=== PATIENT | male | born 1955 | race Caucasian/White ===

== ENCOUNTER 2020-12-15 10:27 | Inpatient (IN) | payer MEDICARE ==
[2020-12-15] VITALS (9 sets, daily range): BP systolic 87–97; BP diastolic 49–67
[~2020-12-15] VITALS: Ht 180.3 cm; Wt 73.4 kg
[2020-12-15 12:07] LABS: BASOPHILS % (AUTO) 0.1 % (0.0-5.0); EOSINOPHILS % (AUTO) 0.2 % (0.0-8.0); HEMATOCRIT 31.6 % (42-54); LYMPHOCYTES % (AUTO) 4.1 % (21.0-51.0); MEAN CORPUSCULAR HEMOGLOBIN 36.3 pg (27.0-33.0); MEAN CORPUSCULAR HGB CONC 37.3 g/dL (32.0-36.0); MEAN CORPUSCULAR VOLUME 97.2 fL (79-99); MONOCYTES % (AUTO) 5.6 % (3.0-13.0); NEUTROPHILS % (AUTO) 88.3 % (40.0-77.0); PLATELET COUNT (AUTO) 305 K/uL (130-400); RED BLOOD CELL COUNT(AUTO) 3.25 MIL/uL (4.50-6.20); WHITE BLOOD COUNT (AUTO) 21.5 K/uL (4.8-10.8)
[2020-12-15 12:19] LABS: INR 1.03 (0.85-1.15); PROTHROMBIN TIME 11.2 SEC (9.6-11.6)
[2020-12-15 12:20] LABS: PARTIAL THROMBOPLASTIN TIME 29.2 SEC (26.3-35.5)
[2020-12-15 12:21] LABS: ALBUMIN 2.2 g/dL (3.5-5.0); BILIRUBIN,TOTAL 0.7 mg/dL (0.2-1.0); POTASSIUM 3.8 mmol/L (3.5-5.1); TOTAL PROTEIN, SERUM 5.6 g/dL (6.0-8.3)
[2020-12-15 12:53] LABS: B-TYPE NATRIURETIC PEPTIDE 75 pg/mL (0-100)
[2020-12-15] MEDS ORDERED: 0.9% NACL 250ML IVPB ONE (13:00)
[2020-12-15] MEDS ORDERED: ZOSYN 3.375GM+NS 50ML 3.38 GM in 0.9%NACL 50ML 50 ML IV SCH ×2 (13:00→15:00)
[2020-12-15] MEDS ORDERED: VANCOMYCIN 1G VIAL IVPB ONE (13:00)
[2020-12-15] MEDS: ZOSYN 3.375GM +NS 50ML IV SCH ×2 (13:12→21:17)
[2020-12-15] MEDS: 0.9%NACL 50ML 50 ML IV SCH ×2 (13:12→21:17)
[2020-12-15] MEDS ORDERED: VANCOMYCIN 1G/250ML KIT 250 ML IV ONE (13:13)
[2020-12-15] MEDS ORDERED: ACETAMINOPHEN 325 MG TAB PO PRN ×2 (14:30)
[2020-12-15] MEDS ORDERED: ZOLPIDEM TARTRATE 5 MG TAB PO PRN (14:30)
[2020-12-15] MEDS ORDERED: ONDANSETRON 4MG INJ IV PRN (14:30)
[2020-12-15] MEDS ORDERED: IOHEXOL-350 50ML VIAL IV ONE (14:32)
[2020-12-15] MEDS ORDERED: VANCOMYCIN PROTOCOL PER PHARMACY IV SCH (15:00)
[2020-12-15] MEDS: 0.9%NACL 1000ML 1,000 ML IV SCH ×2 (15:32→23:48)
[2020-12-15] MEDS: NOREPINEPHRINE 4MG/NS 250ML 250 ML IV SCH (16:33)
[2020-12-15] MEDS: 0.9% NACL 250ML 250 ML IV SCH (16:34)
[2020-12-15] MEDS: VANCOMYCIN 750MG VIAL IVPB SCH (16:34)
[2020-12-15] MEDS: FAMOTIDINE 20MG VIAL IV SCH (21:17)
[2020-12-16] VITALS (11 sets, daily range): BP systolic 90–120; BP diastolic 52–86
[2020-12-16] MEDS: VANCOMYCIN 750MG VIAL IVPB SCH ×3 (01:22→17:23)
[2020-12-16] MEDS: 0.9% NACL 250ML 250 ML IV SCH ×3 (01:22→17:23)
[2020-12-16 01:26] LABS: APPEARANCE,URINE Clear (CLEAR); BILIRUBIN,URINE Negative (NEGATIVE); COLOR,URINE Yellow (YELLOW); GLUCOSE, URINE (UA) Negative (NEGATIVE); KETONES,URINE Trace mg/dL (NEGATIVE); LEUKOCYTE ESTERASE ,URINE Small (NEGATIVE); NITRATE,URINE Positive (NEGATIVE); OCCULT BLOOD,URINE Small (NEGATIVE); PROTEIN,URINE Negative (NEGATIVE)
[2020-12-16] MEDS: 0.9%NACL 1000ML 1,000 ML IV SCH ×2 (01:43→20:30)
[2020-12-16 01:44] LABS: BACTERIA,URINE Few /HPF (None Seen); SQUAMOUS EPITHELIAL CELL,UR Rare /HPF (0-2)
[2020-12-16] MEDS: ZOSYN 3.375GM +NS 50ML IV SCH ×3 (05:46→21:08)
[2020-12-16] MEDS: 0.9%NACL 50ML 50 ML IV SCH ×3 (05:46→21:08)
[2020-12-16 08:01] LABS: HEMATOCRIT 29.7 % (42-54); MEAN CORPUSCULAR HEMOGLOBIN 35.8 pg (27.0-33.0); MEAN CORPUSCULAR VOLUME 99.3 fL (79-99); RED BLOOD CELL COUNT(AUTO) 2.99 MIL/uL (4.50-6.20); RED CELL DISTRIBUTION WIDTH 12.2 % (11.0-15.5); WHITE BLOOD COUNT (AUTO) 16.9 K/uL (4.8-10.8)
[2020-12-16 08:38] LABS: ALBUMIN 1.7 g/dL (3.5-5.0); BILIRUBIN,TOTAL 0.6 mg/dL (0.2-1.0); CREATININE 0.9 mg/dL (0.5-1.5); POTASSIUM 3.1 mmol/L (3.5-5.1); THYROID STIMULATING HORMONE 2.04 uIU/mL (0.36-3.74); TOTAL PROTEIN, SERUM 4.5 g/dL (6.0-8.3)
[2020-12-16] MEDS: FAMOTIDINE 20MG VIAL IV SCH ×2 (09:55→21:08)
[2020-12-16] MEDS: ENOXAPARIN SODIUM 30 MG/0.3 ML SQ SCH (09:56)
[2020-12-16] MEDS ORDERED: VANCOMYCIN 500 MG IV ONE (11:15)
[2020-12-16] MEDS ORDERED: [UNRECOGNIZED DRUG - OTHER] IV ONE (11:15)
[2020-12-17] MEDS: VANCOMYCIN 750MG VIAL IVPB SCH ×3 (01:55→18:53)
[2020-12-17] MEDS: 0.9% NACL 250ML 250 ML IV SCH ×3 (01:55→18:53)
[2020-12-17 06:53] LABS: BASOPHILS % (AUTO) 0.3 % (0.0-5.0); EOSINOPHILS % (AUTO) 0.4 % (0.0-8.0); HEMATOCRIT 29.9 % (42-54); LYMPHOCYTES % (AUTO) 5.6 % (21.0-51.0); MEAN CORPUSCULAR HEMOGLOBIN 35.8 pg (27.0-33.0); MEAN CORPUSCULAR HGB CONC 36.1 g/dL (32.0-36.0); MONOCYTES % (AUTO) 6.1 % (3.0-13.0); NEUTROPHILS % (AUTO) 85.1 % (40.0-77.0); PLATELET COUNT (AUTO) 235 K/uL (130-400); RED BLOOD CELL COUNT(AUTO) 3.02 MIL/uL (4.50-6.20); RED CELL DISTRIBUTION WIDTH 12.1 % (11.0-15.5)
[2020-12-17 07:02] LABS: CREATININE 0.9 mg/dL (0.5-1.5)
[2020-12-17 07:03] LABS: POTASSIUM 2.8 mmol/L (3.5-5.1)
[2020-12-17 08:00] VITALS: BP 96/49
[2020-12-17] MEDS ORDERED: KCL 20 MEQ ERTAB PO ONE ×2 (08:30→10:12)
[2020-12-17] MEDS: 0.9%NACL 50ML 50 ML IV SCH ×2 (10:19→18:16)
[2020-12-17] MEDS: FAMOTIDINE 20MG VIAL IV SCH ×2 (10:20→19:47)
[2020-12-17] MEDS: 0.9%NACL 1000ML 1,000 ML IV SCH (10:20)
[2020-12-17] MEDS: ZOSYN 3.375GM +NS 50ML IV SCH ×2 (10:20→18:16)
[2020-12-17] MEDS: ENOXAPARIN SODIUM 30 MG/0.3 ML SQ SCH (10:21)
[2020-12-17 12:00] VITALS: BP 95/44
[2020-12-17] MEDS ORDERED: MIDODRINE HCL 5 MG TABLET PO SCH (14:00)
[2020-12-17] MEDS ORDERED: POTASSIUM CHLORIDE 10% ELIXIR 20 MEQ/15 ML UDCUP PO ONE (14:00)
[2020-12-17] MEDS: MAGNESIUM 2GM PREMIX 50ML 50 ML IV SCH (14:15)
[2020-12-17] MEDS ORDERED: 0.9%NACL 50ML 50 ML IV ONE (14:54)
[2020-12-17] MEDS ORDERED: MIDODRINE HCL 5 MG TABLET ONE ×2 (15:42→19:41)
[2020-12-17 17:00] VITALS: BP 102/62
[2020-12-17 18:00] VITALS: BP 89/50
[2020-12-17] MEDS ORDERED: FOLIC ACID 1 MG TABLET PO ONE (18:30)
[2020-12-17] MEDS ORDERED: THIAMINE HCL 100 MG/ML 2ML VIAL IVP SCH (18:30)
[2020-12-17] MEDS ORDERED: PHARMACY COMMUNICATION MISC PRN (18:30)
[2020-12-17] MEDS: CHLORDIAZEPOXIDE HCL 25 MG CAP PO PRN (18:50)
[2020-12-17] MEDS: MIDODRINE HCL 5 MG TABLET PO SCH (19:47)
[2020-12-18] VITALS (7 sets, daily range): BP systolic 100–118; BP diastolic 39–65
[2020-12-18] MEDS: CHLORDIAZEPOXIDE HCL 25 MG CAP PO PRN (01:40)
[2020-12-18] MEDS: DIPHENHYDRAMINE HCL 25 MG CAPSULE PO PRN (01:40)
[2020-12-18] MEDS: ZOSYN 3.375GM +NS 50ML IV SCH ×3 (02:31→18:28)
[2020-12-18] MEDS: 0.9%NACL 50ML 50 ML IV SCH ×3 (02:40→18:28)
[2020-12-18] MEDS: 0.9% NACL 250ML 250 ML IV SCH ×3 (02:41→17:35)
[2020-12-18] MEDS: VANCOMYCIN 750MG VIAL IVPB SCH ×3 (02:41→17:35)
[2020-12-18] MEDS: 0.9%NACL 1000ML 1,000 ML IV SCH (02:42)
[2020-12-18 05:51] LABS: BASOPHILS % (AUTO) 0.4 % (0.0-5.0); EOSINOPHILS % (AUTO) 0.5 % (0.0-8.0); HEMATOCRIT 30.2 % (42-54); LYMPHOCYTES % (AUTO) 7.4 % (21.0-51.0); MEAN CORPUSCULAR HEMOGLOBIN 35.9 pg (27.0-33.0); MEAN CORPUSCULAR HGB CONC 35.1 g/dL (32.0-36.0); MEAN CORPUSCULAR VOLUME 102.4 fL (79-99); MONOCYTES % (AUTO) 6.5 % (3.0-13.0); NEUTROPHILS % (AUTO) 83.5 % (40.0-77.0); PLATELET COUNT (AUTO) 246 K/uL (130-400); RED BLOOD CELL COUNT(AUTO) 2.95 MIL/uL (4.50-6.20); RED CELL DISTRIBUTION WIDTH 12.1 % (11.0-15.5); WHITE BLOOD COUNT (AUTO) 14.4 K/uL (4.8-10.8)
[2020-12-18] MEDS: NOREPINEPHRINE 4MG/NS 250ML 250 ML IV SCH (05:55)
[2020-12-18 06:06] LABS: POTASSIUM 3.3 mmol/L (3.5-5.1)
[2020-12-18] MEDS ORDERED: DEXTROSE 50%-WATER 50 ML DISP.SYRIN IV ONE ×2 (06:21→15:36)
[2020-12-18] MEDS: FAMOTIDINE 20MG VIAL IV SCH ×2 (08:37→21:39)
[2020-12-18] MEDS: FOLIC ACID 1 MG TABLET PO SCH (08:37)
[2020-12-18] MEDS: MIDODRINE HCL 5 MG TABLET PO SCH ×3 (08:37→21:39)
[2020-12-18] MEDS: ENOXAPARIN SODIUM 30 MG/0.3 ML SQ SCH (08:42)
[2020-12-18 08:55] LABS: RAPID PLASMA REAGIN NONREACTIVE (NONREACTIVE)
[2020-12-18] MEDS: THIAMINE HCL 100 MG/ML 2ML VIAL IVP SCH (09:07)
[2020-12-18] MEDS: LORAZEPAM 2 MG/ML 1 ML VIAL IVP PRN (16:07)
[2020-12-18] MEDS ORDERED: DEXTROSE 5%-WATER 1,000 ML IV ONE (16:31)
[2020-12-18] MEDS: DEXTROSE 5 % AND 0.9 % NACL 1,000 ML IV SCH (16:34)
[2020-12-19] VITALS (29 sets, daily range): BP systolic 65–133; BP diastolic 36–91
[2020-12-19] MEDS: VANCOMYCIN 750MG VIAL IVPB SCH ×3 (01:00→16:38)
[2020-12-19] MEDS: 0.9% NACL 250ML 250 ML IV SCH ×3 (01:00→16:38)
[2020-12-19] MEDS: 0.9%NACL 50ML 50 ML IV SCH ×3 (01:51→18:25)
[2020-12-19] MEDS: ZOSYN 3.375GM +NS 50ML IV SCH ×3 (01:51→18:25)
[2020-12-19] MEDS: CHLORDIAZEPOXIDE HCL 25 MG CAP PO PRN ×2 (02:07→21:47)
[2020-12-19] MEDS: DEXTROSE 5 % AND 0.9 % NACL 1,000 ML IV SCH ×3 (04:10→20:24)
[2020-12-19 08:48] LABS: BASOPHILS % (AUTO) 0.4 % (0.0-5.0); EOSINOPHILS % (AUTO) 0.6 % (0.0-8.0); LYMPHOCYTES % (AUTO) 6.4 % (21.0-51.0); MEAN CORPUSCULAR HEMOGLOBIN 35.7 pg (27.0-33.0); MEAN CORPUSCULAR HGB CONC 35.6 g/dL (32.0-36.0); MEAN CORPUSCULAR VOLUME 100.3 fL (79-99); MONOCYTES % (AUTO) 7.6 % (3.0-13.0); NEUTROPHILS % (AUTO) 83.3 % (40.0-77.0); PLATELET COUNT (AUTO) 240 K/uL (130-400); RED BLOOD CELL COUNT(AUTO) 3.19 MIL/uL (4.50-6.20); RED CELL DISTRIBUTION WIDTH 12.2 % (11.0-15.5); WHITE BLOOD COUNT (AUTO) 14.5 K/uL (4.8-10.8)
[2020-12-19] MEDS: LACTATED RINGERS 1000ML IV SCH (08:50)
[2020-12-19] MEDS: MIDODRINE HCL 5 MG TABLET PO SCH ×3 (09:00→20:34)
[2020-12-19] MEDS: FOLIC ACID 1 MG TABLET PO SCH (09:00)
[2020-12-19 09:03] LABS: ALBUMIN 1.4 g/dL (3.5-5.0); BILIRUBIN,TOTAL 0.7 mg/dL (0.2-1.0); CREATININE 0.8 mg/dL (0.5-1.5); MAGNESIUM 1.8 mg/dL (1.80-2.40); PHOSPHORUS 3.1 mg/dL (2.5-4.9); POTASSIUM 3.4 mmol/L (3.5-5.1); TOTAL PROTEIN, SERUM 4.4 g/dL (6.0-8.3)
[2020-12-19] MEDS: FAMOTIDINE 20MG VIAL IV SCH ×2 (09:38→20:01)
[2020-12-19] MEDS: THIAMINE HCL 100 MG/ML 2ML VIAL IVP SCH (09:39)
[2020-12-19] MEDS: ENOXAPARIN SODIUM 30 MG/0.3 ML SQ SCH (09:40)
[2020-12-19] MEDS ORDERED: 0.9%NACL 1000ML 1,000 ML IV SCH (11:30)
[2020-12-19] MEDS ORDERED: KCL 20 MEQ ERTAB PO ONE (11:30)
[2020-12-19] MEDS ORDERED: POTASSIUM CHLORIDE 10% ELIXIR 20 MEQ/15 ML UDCUP ONE (13:17)
[2020-12-19] MEDS: DRONABINOL 2.5 MG CAP PO SCH (20:01)
[2020-12-19] MEDS: NOREPINEPHRINE 4MG/NS 250ML 250 ML IV SCH (20:10)
[2020-12-19] MEDS: DIPHENHYDRAMINE HCL 25 MG CAPSULE PO PRN (21:47)
[2020-12-20] VITALS (37 sets, daily range): BP systolic 72–135; BP diastolic 33–79
[2020-12-20] MEDS: NOREPINEPHRINE 4MG/NS 250ML 250 ML IV SCH ×3 (00:13→13:55)
[2020-12-20] MEDS: LORAZEPAM 2 MG/ML 1 ML VIAL IVP PRN ×2 (00:44→16:46)
[2020-12-20] MEDS: ZOSYN 3.375GM +NS 50ML IV SCH ×3 (02:02→17:48)
[2020-12-20] MEDS: 0.9%NACL 50ML 50 ML IV SCH ×3 (02:02→17:48)
[2020-12-20] MEDS: LACTATED RINGERS 1000ML IV SCH (03:04)
[2020-12-20] MEDS: MAGNESIUM 2GM PREMIX 50ML 50 ML IV SCH (03:15)
[2020-12-20 04:14] LABS: BASOPHILS % (AUTO) 0.4 % (0.0-5.0); EOSINOPHILS % (AUTO) 0.9 % (0.0-8.0); HEMATOCRIT 33.1 % (42-54); MEAN CORPUSCULAR HEMOGLOBIN 37.1 pg (27.0-33.0); MEAN CORPUSCULAR HGB CONC 35.6 g/dL (32.0-36.0); MEAN CORPUSCULAR VOLUME 104.1 fL (79-99); MONOCYTES % (AUTO) 6.8 % (3.0-13.0); NEUTROPHILS % (AUTO) 82.8 % (40.0-77.0); PLATELET COUNT (AUTO) 254 K/uL (130-400); RED BLOOD CELL COUNT(AUTO) 3.18 MIL/uL (4.50-6.20); RED CELL DISTRIBUTION WIDTH 12.5 % (11.0-15.5); WHITE BLOOD COUNT (AUTO) 20.8 K/uL (4.8-10.8)
[2020-12-20 04:37] LABS: % IRON SATURATION 64.1 % (30-44)
[2020-12-20 05:02] LABS: ALBUMIN 1.4 g/dL (3.5-5.0); BILIRUBIN,TOTAL 0.8 mg/dL (0.2-1.0); CREATININE 0.9 mg/dL (0.5-1.5); MAGNESIUM 6.1 mg/dL (1.80-2.40); PHOSPHORUS 3.5 mg/dL (2.5-4.9); POTASSIUM 3.3 mmol/L (3.5-5.1); TOTAL PROTEIN, SERUM 4.3 g/dL (6.0-8.3)
[2020-12-20] MEDS: VANCOMYCIN KIT 1 GM/250 ML IV.KIT IV SCH ×2 (08:41→21:27)
[2020-12-20] MEDS: ASCORBIC ACID 500 MG TAB PO SCH (08:42)
[2020-12-20] MEDS: FAMOTIDINE 20MG VIAL IV SCH (08:42)
[2020-12-20] MEDS: THIAMINE HCL 100 MG/ML 2ML VIAL IVP SCH (08:42)
[2020-12-20] MEDS: ZINC SULFATE 220 CAPSULE PO SCH (08:42)
[2020-12-20] MEDS: ENOXAPARIN SODIUM 30 MG/0.3 ML SQ SCH (08:42)
[2020-12-20] MEDS: FOLIC ACID 1 MG TABLET PO SCH (08:43)
[2020-12-20] MEDS: 0.9% NACL 250ML 250 ML IV SCH ×2 (08:43→21:27)
[2020-12-20] MEDS: DRONABINOL 2.5 MG CAP PO SCH ×2 (08:43→21:00)
[2020-12-20] MEDS: MIDODRINE HCL 5 MG TABLET PO SCH ×3 (09:00→21:00)
[2020-12-20] MEDS: DEXTROSE 5 % AND 0.9 % NACL 1,000 ML IV SCH (16:47)
[2020-12-21] VITALS (45 sets, daily range): BP systolic 72–147; BP diastolic 34–105
[2020-12-21] MEDS: LORAZEPAM 2 MG/ML 1 ML VIAL IVP PRN ×2 (00:52→21:41)
[2020-12-21] MEDS: 0.9%NACL 50ML 50 ML IV SCH ×3 (02:00→17:11)
[2020-12-21] MEDS: ZOSYN 3.375GM +NS 50ML IV SCH ×3 (02:11→17:11)
[2020-12-21] MEDS: NOREPINEPHRINE 4MG/NS 250ML 250 ML IV SCH ×3 (02:14→15:25)
[2020-12-21 03:41] LABS: BASOPHILS % (AUTO) 0.3 % (0.0-5.0); EOSINOPHILS % (AUTO) 1.1 % (0.0-8.0); HEMATOCRIT 30.9 % (42-54); LYMPHOCYTES % (AUTO) 5.3 % (21.0-51.0); MEAN CORPUSCULAR HEMOGLOBIN 36.5 pg (27.0-33.0); MEAN CORPUSCULAR HGB CONC 35.6 g/dL (32.0-36.0); MEAN CORPUSCULAR VOLUME 102.7 fL (79-99); MONOCYTES % (AUTO) 5.3 % (3.0-13.0); NEUTROPHILS % (AUTO) 86.2 % (40.0-77.0); PLATELET COUNT (AUTO) 183 K/uL (130-400); RED BLOOD CELL COUNT(AUTO) 3.01 MIL/uL (4.50-6.20); RED CELL DISTRIBUTION WIDTH 12.6 % (11.0-15.5); WHITE BLOOD COUNT (AUTO) 13.7 K/uL (4.8-10.8)
[2020-12-21 03:48] LABS: ALBUMIN 1.3 g/dL (3.5-5.0); BILIRUBIN,TOTAL 0.6 mg/dL (0.2-1.0); CREATININE 0.8 mg/dL (0.5-1.5); MAGNESIUM 1.9 mg/dL (1.80-2.40)
[2020-12-21 03:58] LABS: POTASSIUM 2.9 mmol/L (3.5-5.1)
[2020-12-21] MEDS ORDERED: POTASSIUM CHLORIDE 20MEQ/100ML 100 ML IV ONE (04:16)
[2020-12-21] MEDS: POTASSIUM CHLORIDE 20MEQ/100ML 100 ML IV PRN ×2 (05:49→08:03)
[2020-12-21] MEDS ORDERED: IPRATROPIUM 0.5 MG/2.5 ML INH IH PRN (08:00)
[2020-12-21] MEDS: DEXTROSE 5 % AND 0.9 % NACL 1,000 ML IV SCH (08:04)
[2020-12-21] MEDS: LACTATED RINGERS 1000ML IV SCH (08:30)
[2020-12-21] MEDS ORDERED: PANTOPRAZOLE 40 MG TAB DR PO SCH (09:00)
[2020-12-21] MEDS: ENOXAPARIN SODIUM 30 MG/0.3 ML SQ SCH (09:38)
[2020-12-21] MEDS: MIDODRINE HCL 5 MG TABLET PO SCH ×3 (09:38→20:56)
[2020-12-21] MEDS: 0.9% NACL 250ML 250 ML IV SCH ×2 (09:38→20:51)
[2020-12-21] MEDS: FOLIC ACID 1 MG TABLET PO SCH (09:38)
[2020-12-21] MEDS: VANCOMYCIN KIT 1 GM/250 ML IV.KIT IV SCH ×2 (09:38→20:51)
[2020-12-21] MEDS: ZINC SULFATE 220 CAPSULE PO SCH (09:38)
[2020-12-21] MEDS: THIAMINE HCL 100 MG/ML 2ML VIAL IVP SCH ×3 (09:38→20:55)
[2020-12-21] MEDS: ASCORBIC ACID 500 MG TAB PO SCH (09:38)
[2020-12-21] MEDS: DRONABINOL 2.5 MG CAP PO SCH ×2 (09:38→20:55)
[2020-12-21] MEDS: FUROSEMIDE 20MG VIAL IV ONE ×2 (17:00→17:10)
[2020-12-21] MEDS: IPRATROPIUM 0.5 MG/2.5 ML INH IH SCH ×2 (18:30→22:48)
[2020-12-21 19:27] LABS: INR 1.12 (0.85-1.15); PROTHROMBIN TIME 12.1 SEC (9.6-11.6)
[2020-12-21 19:28] LABS: PARTIAL THROMBOPLASTIN TIME 46.3 SEC (26.3-35.5)
[2020-12-22] VITALS (81 sets, daily range): BP systolic 67–143; BP diastolic 17–100
[2020-12-22] MEDS: DEXTROSE 5 % AND 0.9 % NACL 1,000 ML IV SCH ×2 (00:21→13:12)
[2020-12-22] MEDS: ZOSYN 3.375GM +NS 50ML IV SCH ×3 (01:00→17:57)
[2020-12-22] MEDS: NOREPINEPHRINE 4MG/NS 250ML 250 ML IV SCH (01:01)
[2020-12-22] MEDS: 0.9%NACL 50ML 50 ML IV SCH ×3 (01:07→17:57)
[2020-12-22] MEDS: LORAZEPAM 2 MG/ML 1 ML VIAL IVP PRN ×2 (01:56→06:15)
[2020-12-22 04:58] LABS: BASOPHILS % (AUTO) 0.2 % (0.0-5.0); EOSINOPHILS % (AUTO) 0.1 % (0.0-8.0); LYMPHOCYTES % (AUTO) 2.1 % (21.0-51.0); MEAN CORPUSCULAR HEMOGLOBIN 35.8 pg (27.0-33.0); MEAN CORPUSCULAR HGB CONC 34.2 g/dL (32.0-36.0); MEAN CORPUSCULAR VOLUME 104.7 fL (79-99); MONOCYTES % (AUTO) 3.3 % (3.0-13.0); NEUTROPHILS % (AUTO) 92.4 % (40.0-77.0); PLATELET COUNT (AUTO) 179 K/uL (130-400); RED BLOOD CELL COUNT(AUTO) 2.96 MIL/uL (4.50-6.20); RED CELL DISTRIBUTION WIDTH 12.8 % (11.0-15.5); WHITE BLOOD COUNT (AUTO) 27.5 K/uL (4.8-10.8)
[2020-12-22 05:18] LABS: ALBUMIN 1.3 g/dL (3.5-5.0); BILIRUBIN,TOTAL 0.6 mg/dL (0.2-1.0); POTASSIUM 3.7 mmol/L (3.5-5.1); TOTAL PROTEIN, SERUM 4.1 g/dL (6.0-8.3)
[2020-12-22] MEDS: IPRATROPIUM 0.5 MG/2.5 ML INH IH SCH ×4 (06:33→23:27)
[2020-12-22] MEDS: 0.9% NACL 250ML 250 ML IV SCH ×2 (09:00→21:00)
[2020-12-22] MEDS: VANCOMYCIN KIT 1 GM/250 ML IV.KIT IV SCH ×2 (09:00→21:00)
[2020-12-22] MEDS ORDERED: PANTOPRAZOLE 40 MG/VIAL IVP SCH (09:00)
[2020-12-22] MEDS: THIAMINE HCL 100 MG/ML 2ML VIAL IVP SCH ×2 (09:52→20:10)
[2020-12-22] MEDS: FOLIC ACID 1 MG TABLET PO SCH (09:52)
[2020-12-22] MEDS: ASCORBIC ACID 500 MG TAB PO SCH (09:52)
[2020-12-22] MEDS: MIDODRINE HCL 5 MG TABLET PO SCH ×3 (09:52→20:11)
[2020-12-22] MEDS: ZINC SULFATE 220 CAPSULE PO SCH (09:52)
[2020-12-22] MEDS: DRONABINOL 2.5 MG CAP PO SCH ×2 (09:52→20:09)
[2020-12-22] MEDS: ENOXAPARIN SODIUM 30 MG/0.3 ML SQ SCH (09:53)
[2020-12-22] MEDS: LACTATED RINGERS 1000ML IV SCH (10:12)
[2020-12-22] MEDS ORDERED: FUROSEMIDE 20MG VIAL ONE (10:38)
[2020-12-22] MEDS ORDERED: CHLORDIAZEPOXIDE HCL 25 MG CAP PO PRN (13:00)
[2020-12-22] MEDS ORDERED: LORAZEPAM 2 MG/ML 1 ML VIAL IVP PRN (13:00)
[2020-12-22] MEDS ORDERED: NOREPINEPHRINE BITARTRATE 8 MG in DEXTROSE 5%-WATER 250 ML IV PRN (13:30)
[2020-12-22] MEDS ORDERED: NOREPINEPHRINE 8MG/NS 250 ML 250 ML IV ONE ×3 (14:52→20:35)
[2020-12-22] MEDS: FUROSEMIDE 40MG VIAL IV SCH (16:19)
[2020-12-22] MEDS ORDERED: DEXTROSE 5%-WATER 1,000 ML IV SCH (16:30)
[2020-12-22] MEDS ORDERED: NOREPINEPHRINE BITARTRATE 32 MG in DEXTROSE 5%-WATER 250 ML IV PRN (21:30)
[2020-12-23] VITALS (23 sets, daily range): BP systolic 71–173; BP diastolic 24–78
[2020-12-23] MEDS ORDERED: PHENYLEPHRINE HCL 10 MG/ML 1ML VIAL IV ONE ×2 (00:52→02:15)
[2020-12-23] MEDS ORDERED: PHENYLEPHRINE HCL 100 MG in 0.9% NACL 250ML 250 ML IV SCH (01:00)
[2020-12-23] MEDS ORDERED: 0.9% NACL 500ML IV.SOLN 500 ML IV ONE (01:00)
[2020-12-23 01:38] LABS: MAGNESIUM 1.9 mg/dL (1.80-2.40); POTASSIUM 4.2 mmol/L (3.5-5.1)
[2020-12-23] MEDS: ZOSYN 3.375GM +NS 50ML IV SCH (01:43)
[2020-12-23] MEDS: 0.9%NACL 50ML 50 ML IV SCH (01:44)
[2020-12-23] MEDS: FUROSEMIDE 40MG VIAL IV SCH (04:30)
[2020-12-23] MEDS ORDERED: VASOPRESSIN 20 UNITS/ML 1ML VIAL ONE (04:41)
[2020-12-23] MEDS ORDERED: 0.9%NACL 100ML 100 ML ONE (04:43)
[2020-12-23 05:12] LABS: BASOPHILS % (AUTO) 0.3 % (0.0-5.0); LYMPHOCYTES % (AUTO) 1.8 % (21.0-51.0)
[2020-12-23 05:14] LABS: HEMATOCRIT 33.6 % (42-54); MEAN CORPUSCULAR HEMOGLOBIN 36.7 pg (27.0-33.0); MEAN CORPUSCULAR HGB CONC 34.5 g/dL (32.0-36.0); MEAN CORPUSCULAR VOLUME 106.3 fL (79-99); MONOCYTES % (AUTO) 3.3 % (3.0-13.0); NEUTROPHILS % (AUTO) 91.5 % (40.0-77.0); PLATELET COUNT (AUTO) 232 K/uL (130-400); RED BLOOD CELL COUNT(AUTO) 3.16 MIL/uL (4.50-6.20); RED CELL DISTRIBUTION WIDTH 13.5 % (11.0-15.5)
[2020-12-23 05:24] LABS: WHITE BLOOD COUNT (AUTO) 43.8 K/uL (4.8-10.8)
[2020-12-23 05:27] LABS: CREATININE 1.6 mg/dL (0.5-1.5); POTASSIUM 4.3 mmol/L (3.5-5.1)
[2020-12-23 06:06] LABS: BAND NEUTROPHILS % (MANUAL) 6 % (0-2); MAN.DIFF COMMENT-IMPRESSION MANUAL DIFFERENTIAL; MONOCYTES % (MANUAL) 4 % (2-9); SEGMENTED NEUTROPHILS % 90 % (40-70)
[2020-12-23] MEDS ORDERED: VASOPRESSIN 40 UNITS in 0.9%NACL 50ML 40 ML IV SCH (06:55)
[2020-12-23] MEDS: IPRATROPIUM 0.5 MG/2.5 ML INH IH SCH (07:01)
[2020-12-23] MEDS ORDERED: IPRATROPIUM 0.5 MG/2.5 ML INH IH PRN (07:30)
[2021-01-05 12:47] LABS: HEPATITIS A ANTIBODY IGM SEE SEPARATE REPORT (Negative); HEPATITIS B CORE IGM SEE SEPARATE RESULT (Negative); HEPATITIS Bs ANTIGEN SCREEN P SSR (Negative)
== END 2020-12-23 11:27 | DRG 871 ==
LOC: EDH 10:27 → EDHIP 14:05 → 2CH 12-19 17:28
PROVIDERS: ADMIT Hospitalist; ATTEND Hospitalist
PROC: 02HV33Z Insertion of Infusion Device into Superior Vena Cava, Percutaneous Approach (ICD-10-PCS; principal; 2020-12-21)
DX: A41.9 Sepsis, unspecified organism (principal); E43 Unspecified severe protein-calorie malnutrition; R65.21 Severe sepsis with septic shock; J85.0 Gangrene and necrosis of lung; J18.8 Other pneumonia, unspecified organism; E87.1 Hypo-osmolality and hyponatremia; F10.239 Alcohol dependence with withdrawal, unspecified; G93.40 Encephalopathy, unspecified; J44.0 Chronic obstructive pulmonary disease with (acute) lower respiratory infection; A15.0 Tuberculosis of lung; E86.0 Dehydration; E16.2 Hypoglycemia, unspecified; E87.6 Hypokalemia; E83.42 Hypomagnesemia; F17.210 Nicotine dependence, cigarettes, uncomplicated; F19.10 Other psychoactive substance abuse, uncomplicated; Z68.22 Body mass index [BMI] 22.0-22.9, adult; G47.10 Hypersomnia, unspecified; I48.91 Unspecified atrial fibrillation; R32 Unspecified urinary incontinence; Z66 Do not resuscitate; R53.81 Other malaise; Z20.822 Contact with and (suspected) exposure to COVID-19
CPT/HCPCS: 36415; 70450; 71045; 71260; 74176; 80048; 80053; 80074; 80202; 80400; 81001; 82088; 82140; 82306; 82330; 82533; 82550; 82607; 82627; 82728; 82746; 82948; 83540; 83550; 83605; 83735; 83880; 84100; 84132; 84145; 84244; 84443; 84484; 85025; 85027; 85045; 85610; 85730; 86359; 86361; 86480; 86592; 86606; 86612; 86635; 86698; 86701; 86713; 87040; 87071; 87077; 87088; 87116; 87186; 87205; 87206; 87385; 87390; 87449; 87536; 87635; 93005; 94640; 94664; A4344; C1751; C1894; C9113; C9803; G0378; J1650; J1940; J2060; J2370; J2543; J3370; J3411; J3475; J3480; J3490; J7030; J7040; J7042; J7050; J7070; Q0163; Q0167; Q9967